=== PATIENT | female | born 2000 | race Caucasian/White ===

== ENCOUNTER 2022-01-27 08:16 | Emergency (ER) | payer OTHER, SELFPAY ==
[2022-01-27 08:29] VITALS: BP 102/64; PULSE 98; RESP 18; TEMP 38.7; O2SAT 100
--- NOTE | 2022-01-27 08:49 | ED.URI ---
HPI - URI/Sore Throat General Chief Complaint: Upper Respiratory Infection Stated Complaint: Sore Throat Time Seen by Provider: 01/27/22 08:38 Source: patient Mode of arrival: ambulatory Limitations: no limitations History of Present Illness HPI Narrative: Patient presents today complaining of sore throat, subjective fever with chills, postnasal drip, congestion, headache. Symptoms began last night. She currently rates her pain 7/10 and has been taking ibuprofen with some relief. Denies shortness of breath. History of tonsillitis. Related Data Allergies Allergy/AdvReac Type Severity Reaction Status Date / Time No Known Allergies Allergy Verified 01/27/22 08:26 Review of Systems Review of Systems: CONSTITUTIONAL: Denies body aches,or sweats.+ Fever, chills EYES: Denies visual changes, redness, or discharge. ENT: Denies rhinorrhea, or otalgia.+ Sore throat, postnasal drip, congestion CARDIOVASCULAR: Denies chest pain, palpitations, or edema. RESPIRATORY: Denies cough or dyspnea. GASTROINTESTINAL: Denies abdominal pain, nausea, vomiting, or diarrhea. GENITOURINARY: Denies dysuria or hematuria. SKIN: Denies rash, itching, or wounds. MUSCULOSKELETAL: Denies back pain, joint pain, or myalgia. NEUROLOGIC: Denies numbness, tingling, or weakness.+ Headache PSYCH: Denies depression or anxiety. PMFSH Comments At time of signature, I have reviewed and agree with nursing past medical, surgical, social and family history unless otherwise noted. Please see nursing chart for further information. There is no relevant family history pertinent to the presenting complaint Exam Narrative: GENERAL: Well-appearing, well-nourished, and in no acute distress. HEAD: Normocephalic, atraumatic. EYES: EOMI. No redness or drainage. Conjunctivae normal. ENT: Mucous membranes pink and moist. Nares clear. No rhinorrhea. TMs normal bilaterally. Tonsils 3+ and mildly erythematous without exudate. Uvula midline. NECK: Normal AROM. Supple. Mild bilateral anterior cervical chain lymphadenopathy. CHEST: No respiratory distress. Clear to auscultation. HEART: Regular rate and rhythm. No murmur appreciated. Normal peripheral pulses. EXTREMITIES: Normal range of motion. No edema. SKIN: Warm, dry, no rash. Capillary refill normal. Normal skin turgor. NEURO: No focal deficits. Alert and oriented x3. Gait steady. PSYCH: Normal affect. No signs of depression or anxiety. Course Course Level of Care: Express Care Visit Vital Signs Vital signs: Vital Signs Temperature 101.6 F H 01/27/22 08:29 Pulse Rate 98 01/27/22 08:29 Respiratory Rate 18 01/27/22 08:29 Blood Pressure 102/64 01/27/22 08:29 Pulse Oximetry 100 01/27/22 08:29 Oxygen Delivery Room Air 01/27/22 08:29 Temperature 101.6 F H 01/27/22 08:29 Pulse Rate 98 01/27/22 08:29 Respiratory Rate 18 01/27/22 08:29 Blood Pressure 102/64 01/27/22 08:29 Pulse Oximetry 100 01/27/22 08:29 Oxygen Delivery Room Air 01/27/22 08:29 Reviewed MDM - URI/Sore Throat MDM Narrative Medical decision making narrative: At this time, we do not have capability of doing a rapid strep test. We will culture patient's throat and start her on some steroids to help decrease the size of her tonsils. Differential Diagnosis Differential diagnosis: Likely upper respiratory infection, viral infection, pharyngitis and other (Tonsillitis, strep throat) Critical Care Time Critical Care Time Critical Care Time: No Discharge Plan Discharge Clinical Impression: Upper respiratory infection Qualifiers: URI type: unspecified URI Qualified Code(s): J06.9 - Acute upper respiratory infection, unspecified Acute tonsillitis Qualifiers: Pharyngitis/tonsillitis etiology: unspecified etiology Qualified Code(s): J03.90 - Acute tonsillitis, unspecified Patient Disposition: Home, Self-Care Condition: Stable Instructions: Tonsillitis (ED) Additional Instructions: Please take t
== END 2022-01-27 09:01 | disposition home or self-care (01) ==
PROVIDERS: Emergency Provider Nurse Practitioner
DX: J06.9 Acute upper respiratory infection, unspecified (principal); J03.90 Acute tonsillitis, unspecified
CPT/HCPCS: 87081; 99213; G0463